=== PATIENT | female | born 1970 | race Caucasian/White ===

== ENCOUNTER 2016-10-03 22:21 | Emergency (ER) | payer SELFPAY ==
[2016-10-03 23:10] VITALS: TEMP 98; O2SAT 100
[2016-10-03] MEDS ORDERED: SODIUM CHLORIDE 0.9% 1000ML 1,000 ML IVS ONE (23:19)
--- NOTE | 2016-10-03 23:36 | RAD ---
PROCEDURE: Chest,2 Views CLINICAL HISTORY: syncope INDICATION: Same as above COMPARISON: None TECHNIQUE: PA and and lateral chest radiographs were obtained. FINDINGS: The lung taylor are well inflated. There are no discrete airspace infiltrates, pneumothoraces or pleural effusions. The pulmonary vascularity is normal The cardiomediastinal silhouette is unremarkable for patient's age and sex. IMPRESSION: There is no acute pleural-parenchymal process seen in the imaged lung taylor. Place of interpretation: T[facility]iology. Electronically signed by: Reji Roper MD 10/03/2016 11:35 PM TIP FIXER
--- NOTE | 2016-10-04 00:24 | ED.PDOC ---
History of Present Illness - General Chief Complaint: Syncope/Near Syncope Stated Complaint: syncopal episodes, ear pain Time Seen by Provider: 10/03/16 23:17 Source: patient, RN notes reviewed, Vital Signs reviewed Exam Limitations: no limitations - History of Present Illness Initial Comments: Patient reports she has been having left ear pain and popping. Last night her boyfriend put some antibiotic drops in her ear. This morning and throughout the day she has felt weak and had syncopal and near syncopal episodes. Occasional SOB. She feels this is related to the ear drops. She is also taking Phentermine and a water pill. I feel these are much more likely causes of her symptoms. Timing/Duration: 24 hours Severity: moderate Improving Factors: nothing Worsening Factors: nothing Associated Symptoms: shortness of breath, syncope Allergies/Adverse Reactions: Allergies NO KNOWN ALLERGY Allergy (Verified 10/03/16 23:10) Home Medications: Ambulatory Orders Phentermine HCl 10/03/16 Water Pills 10/03/16 Review of Systems - Review of Systems Constitutional: States: weakness. Denies: chills, diaphoresis, fever, malaise EENTM: States: ear pain Respiratory: States: short of breath. Denies: cough, stridor, wheezing Cardiology: States: syncope. Denies: chest pain, edema, palpitations Gastrointestinal/Abdominal: States: no symptoms reported Genitourinary: States: no symptoms reported Musculoskeletal: States: no symptoms reported Skin: States: no symptoms reported Neurological: States: no symptoms reported Endocrine: States: no symptoms reported Hematologic/Lymphatic: States: no symptoms reported Past Medical History (General) - Vaccination History Hx Influenza Vaccination: Yes - Female History Patient is a Female of Child Bearing Age (10 -59 yrs old): Yes Patient : No Family Medical History - Family History Father Family History: Unknown Physical Exam - Physical Exam General Appearance: Alert, Anxious, Comfortable, No apparent distress, Well Developed, Well Groomed Eye Exam: bilateral normal Ears, Nose, Throat: hearing grossly normal, normal ENT inspection, normal pharynx Neck: non-tender, full range of motion, supple, normal inspection Respiratory: chest non-tender, lungs clear, normal breath sounds, no respiratory distress, no accessory muscle use Cardiovascular/Chest: regular rate, rhythm, no edema, no gallop, no JVD, no murmur Extremity: normal range of motion, non-tender, normal inspection, no pedal edema Neurologic: [employer] II-XII nml as tested, no motor/sensory deficits, alert, normal mood/affect, oriented x 3 Skin Exam: normal color, warm/dry Comments: Vital Signs - 24 hr 10/03/16 23:05 Temperature 98.0 F Pulse Rate [ 88 Left] Respiratory 18 Rate Blood Pressure 177/113 [left] O2 Sat by Pulse 100 Oximetry Progress - Progress Progress: 10/04/16 00:29 Discussed labs, EKG and CXR with patient. Must stop the Phentermine and the water pill. Follow up with Cardiology for echocardiogram due to syncope. - Results/Orders Results/Orders: Laboratory Tests 10/03/16 23:44 WBC 9.2 RBC 4.83 Hgb 13.6 Hct 41.0 MCV 84.9 MCH 28.1 MCHC 33.2 RDW 13.6 Plt Count 248 MPV 8.3 Absolute Neuts (auto) 5.50 Absolute Lymphs (auto) 3.10 Absolute Monos (auto) 0.50 Absolute Eos (auto) 0.00 Absolute Basos (auto) 0.10 Neutrophils % 59.4 Lymphocytes % 33.5 Monocytes % 5.9 Eosinophils % 0.5 L Basophils % 0.7 D-Dimer, Quantitative < 200 Sodium 135 Potassium 3.6 Chloride 97 L Carbon Dioxide 27 Anion Gap 14.6 BUN 24 H Creatinine 1.22 BUN/Creatinine Ratio 19.7 Random Glucose 114 H Serum Osmolality 275.0 Calcium 9.7 Total Bilirubin 0.6 AST 21 ALT 27 Alkaline Phosphatase 96 Creatine Kinase 91 CK-MB (CK-2) 2.2 CK-MB (CK-2) % 2.42 Troponin I 0.00 L Serum Total Protein 8.3 H Albumin 4.4 Globulin 3.9 H Albumin/Globulin Ratio 1.1 - EKG/XRAY/CT EKG: Atrial, no ST T wave changes Comments: Normal XRAY: chest - Normal per Radiology Departure - Departure Clinical Impression: Syncope Time of Disposition: 00:30 Disposition: Discharge to Home or Self Care Condition: Good Departure Forms: ED Discharge - Pt. Copy, Patient Portal Self Enrollment, Work Release Form Diet: resume usual diet - Increase water/fluid intake Activity: increase activity as tolerated Referrals: Jefry Guerrero MD [Primary Care Provider] - 1-2 Weeks MARLENY CORRALES MD [Consulting Staff] - 1 Week (Needs echocardiogram for syncopal episodes while on Phentermine) Home Medications: Ambulatory Orders Phentermine HCl 10/03/16 Water Pills 10/03/16 Additional Instructions: Stop Phentermine and water pills.
[2016-10-04 00:54] VITALS: BP 128/90
== END 2016-10-04 00:54 | disposition home or self-care (01) ==
LOC: ER 22:21
DX: R55 Syncope and collapse (principal)
CPT/HCPCS: 36415; 71020; 80053; 82550; 82553; 84484; 85025; 85379; 93005; J7030

== ENCOUNTER 2016-10-15 22:19 | Emergency (ER) | payer SELFPAY ==
[2016-10-15] MEDS ORDERED: ONDANSETRON INJ 4 MG/2 ML VIAL IV ONE (22:44)
--- NOTE | 2016-10-16 00:33 | ED.PDOC ---
History of Present Illness - General Chief Complaint: General Stated Complaint: back pain / nausea Time Seen by Provider: 10/15/16 22:38 Source: patient, RN notes reviewed, EMS notes reviewed Additional Information: Pt brought in by EMS following episode at work of arm numbness and tingling associated with brief altered level of consciousness. Pt reports several episodes of being light headed intermittently but never as bad as this episode. Upon arrival Pt had improvement in overall condition following monitoring and reassurance. - History of Present Illness Timing/Duration: other - started just prior to arrival. Improving upon arrival to ED. Severity: moderate Improving Factors: rest Worsening Factors: movement Associated Symptoms: weakness - , pre-syncope, and anxiety Allergies/Adverse Reactions: Allergies NO KNOWN ALLERGY Allergy (Verified 10/03/16 23:10) Home Medications: Ambulatory Orders Phentermine HCl 10/03/16 Water Pills 10/03/16 Review of Systems - Review of Systems Constitutional: States: weakness EENTM: States: no symptoms reported Respiratory: States: no symptoms reported Cardiology: States: no symptoms reported Gastrointestinal/Abdominal: States: no symptoms reported Genitourinary: States: no symptoms reported Musculoskeletal: States: no symptoms reported Skin: States: no symptoms reported Neurological: States: see HPI, paresthesia, tingling, weakness - improving since arrival to ED Endocrine: States: no symptoms reported Hematologic/Lymphatic: States: no symptoms reported Past Medical History (General) - Patient Medical History Hx Seizures: No Hx Stroke: No Hx Dementia: No Hx Asthma: No Hx of COPD: No Hx Cardiac Disorders: No Hx Congestive Heart Failure: No Hx Pacemaker: No Hx Hypertension: Yes Hx Thyroid Disease: No Hx Diabetes: No Hx Gastroesophageal Reflux: No Hx Renal Disease: No Hx Cancer: No Hx of HIV: No Hx Hepatitis C: No Hx MRSA: No Surgical History: other - Vaccination History Hx Tetanus, Diphtheria Vaccination: No Hx Influenza Vaccination: Yes Hx Pneumococcal Vaccination: No Immunizations Up to Date: Yes - Social History Hx Tobacco Use: No Hx Alcohol Use: No - Female History Patient is a Female of Child Bearing Age (10 -59 yrs old): Yes Patient : No Family Medical History - Family History Father Family History: Unknown Living Status: Age at (years of age): 52 Cause of : [place] Mother Living Status: Still Living Physical Exam - Physical Exam General Appearance: Anxious, No apparent distress, Well Developed, Well Groomed , Well Hydrated, Well Nourished Eye Exam: bilateral normal Ears, Nose, Throat: hearing grossly normal Neck: non-tender, full range of motion, supple Respiratory: normal breath sounds, no respiratory distress, no accessory muscle use Cardiovascular/Chest: normal peripheral pulses, regular rate, rhythm, no murmur Gastrointestinal/Abdominal: non tender, soft Back Exam: normal inspection Extremity: normal range of motion, non-tender Neurologic: [place] II-XII nml as tested, no motor/sensory deficits, alert, normal mood/affect, oriented x 3 Skin Exam: normal color Lymphatic: no adenopathy Progress - Progress Progress: 10/16/16 03:47 Pt's affect suggestive of possible anxiety. Also, affect may be related to her vague symptoms. I suspect symptoms may be related to mood disorder vs atypical migraine vs. presyncope (cardiogenic vs orthostatic vs neurogenic). Pt stable for d/c home given resolution of symptoms following period in ER with IV fluids - pt states she feels 110% better. Labs and EKG WNL. Pt given strict return precautions. - Results/Orders Results/Orders: 10/15/16 23:30 EKG STAT Laboratory Results - last 24 hr 10/15/16 10/16/16 10/16/16 22:50 01:00 01:58 WBC 9.7 RBC 4.54 Hgb 12.7 Hct 38.1 MCV 84.0 MCH 28.0 MCHC 33.4 RDW 13.3 Plt Count 271 MPV 8.2 Absolute Neuts (auto) 7.00 H Absolute Lymphs (auto) 2.00 Absolute Monos (auto) 0.60 Absolute Eos (auto) 0.00 Absolute Basos (auto) 0.00 Neutrophils % 72.7 Lymphocytes % 20.7 Monocytes % 6.1 Eosinophils % 0.2 L Basophils % 0.3 Sodium 135 138 Potassium 3.3 L 3.8 Chloride 98 L 101 Carbon Dioxide 25 27 Anion Gap 15.3 13.8 BUN 31 H 28 H Creatinine 1.71 H 1.35 H BUN/Creatinine Ratio 18.1 20.7 H Random Glucose 96 107 H Serum Osmolality 276.5 281.6 Calcium 9.3 8.7 Total Bilirubin 0.6 0.5 AST 25 23 ALT 20 18 Alkaline Phosphatase 84 80 Serum Total Protein 7.2 6.9 Albumin 4.1 3.9 Globulin 3.1 3.0 Albumin/Globulin Ratio 1.3 1.3 Ur Random Sodium 34 Urine Creatinine 22.43 Urine Opiates Screen Negative Urine Barbiturates Negative Ur Phencyclidine Scrn Negative U Amphetamin/Meth Scrn Negative U Benzodiazepines Scrn Negative U Cocaine Metab Screen Negative U Cannabinoids Screen Negative - EKG/XRAY/CT EKG: Sinus, no ST T wave changes CT Ordered: No CT Interpretation Call Back: No Departure - Departure Clinical Impression: Pre-syncope Time of Disposition: 03:48 Disposition: Discharge to Home or Self Care Condition: Fair Departure Forms: ED Discharge - Pt. Copy, Patient Portal Self Enrollment Home Medications: Ambulatory Orders Phentermine HCl 10/03/16 Water Pills 10/03/16 Additional Instructions: Stay well hydrated. Try to establish primary care as soon as possible to assist with ongoing work- up if symptoms persist - consider referral to a Trim Setter Helper for a Holter or Event Monitor. Return to ER if condition worsens.
[2016-10-16] MEDS ORDERED: SODIUM CHLORIDE 0.9% 1000ML 1,000 ML IVS ONE (00:47)
[2016-10-16] MEDS ORDERED: POTASSIUM CHLORIDE 20 MEQ TAB PO ONE (00:47)
[2016-10-16] MEDS ORDERED: POTASSIUM BICARBONATE 25 MEQ TAB PO ONE (01:06)
[2016-10-16 03:49] VITALS: BP 111/77; TEMP 98.2; O2SAT 99
== END 2016-10-16 03:48 | disposition home or self-care (01) ==
LOC: ER 22:19
DX: R55 Syncope and collapse (principal); R20.2 Paresthesia of skin; I10 Essential (primary) hypertension
CPT/HCPCS: 36415; 80053; 80307; 82570; 84300; 85025; 93005; J2405; J7030